=== PATIENT | male | born 1965 | race Caucasian/White ===

== ENCOUNTER 2019-11-03 22:20 | Inpatient (IN) | payer MEDICARE ==
[~2019-11-03] VITALS: Ht 170.1 cm; Wt 97.5 kg
[2019-11-03] MEDS ORDERED: ZESTRIL,PRINIVIL5 MG PO (23:30)
[2019-11-03] MEDS ORDERED: PLAVIX75 M1 PO (23:37)
[2019-11-03] MEDS ORDERED: ELIQUIS5 M1 PO (23:41)
[2019-11-03] MEDS ORDERED: OMEPRAZOLE40 MG PO (23:44)
[2019-11-03] MEDS ORDERED: GEODON80 MG PO (23:46)
[2019-11-03] MEDS ORDERED: ADDERALL XR 3030 MG PO (23:49)
[2019-11-04 18:14] VITALS: BP 103/73
[2019-11-04 18:14] LABS: BASO # 0.1 10*3/uL (0.0-0.1); BASO % 0.6 % (0.0-1.0); EOS # 0.2 10*3/uL (0.0-0.4); EOS % 1.6 % (1.0-4.0); HEMATOCRIT 42.9 % (42.0-52.0); LYMPH # 1.9 10*3/uL (1.3-4.4); LYMPH % 14.9 % (27.0-41.0); MEAN CELL VOLUME 91.5 fl (80.0-94.0); MEAN CORPUSCULAR HGB 32.2 pg (27.0-31.0); MEAN CORPUSCULAR HGB CONC 35.2 g/dl (33.0-37.0); MEAN PLATELET VOLUME 9.7 fl (9.6-12.3); MONO # 0.6 10*3/uL (0.1-1.0); MONO % 4.9 % (3.0-9.0); NEUT # 9.8 10*3/uL (2.3-7.9); NEUT % 77.6 % (47.0-73.0); PLATELET COUNT AUTOMATED 257 10*3/uL (130-400); RED BLOOD COUNT 4.69 10*6/uL (4.50-5.90); RED CELL DISTRI WIDTH 13.1 % (0-14.5); WHITE BLOOD COUNT 12.6 10*3/uL (4.8-10.8)
[2019-11-04 18:42] LABS: CHOLESTEROL 178 mg/dL (<200); HDL CHOLESTEROL 33 mg/dl (40-60); LDL CHOLESTEROL 118 mg/dL (9-159); TRIGLYCERIDES 135 mg/dl (<150); VLDL CHOLESTEROL 27 mg/dL (6-40)
[2019-11-04 18:44] LABS: ALBUMIN 3.4 gm/dl (3.1-4.5); ALKALINE PHOSPHATASE 142 U/L (45-117); BUN 13 mg/dl (7-24); CHLORIDE 103 mmol/L (98-107); CREATININE 1.44 mg/dL (0.70-1.30); POTASSIUM 3.2 mmol/L (3.5-5.1); SGOT/AST 24 IU/L (3-35); SGPT/ALT 39 U/L (12-78); SODIUM 139 mmol/L (136-145); TOTAL PROTEIN 6.8 gm/dL (6.4-8.2)
[2019-11-04 18:45] VITALS: BP 103/73
[2019-11-04 18:51] LABS: THYROID STIM HORMONE (HS) 0.822 uIU/ml (0.358-4.75)
[2019-11-04 19:18] LABS: VITAMIN D, 25-HYDROXY 9.6 ng/mL (30-100)
[2019-11-04 20:00] VITALS: BP 103/73
[2019-11-05 07:25] VITALS: BP 145/71
[2019-11-05] MEDS ORDERED: LYRICA150 M1 PO (13:33)
[2019-11-05 19:41] VITALS: BP 158/81
[2019-11-06 07:19] VITALS: BP 145/58
[2019-11-06 20:00] VITALS: BP 160/80
[2019-11-07 08:00] VITALS: BP 128/60
[2019-11-07] MEDS ORDERED: CLONAZEPAM0.5 M2 PO (08:08)
[2019-11-07] MEDS ORDERED: BRIN10TA PO (08:08)
[2019-11-07] MEDS ORDERED: CLONAZEPAM1 MG PO (08:08)
[2019-11-07] MEDS ORDERED: LYRICA150 M1 PO (16:12)
== END 2019-11-07 19:23 | disposition home or self-care (01) | DRG 885 ==
LOC: 3N 22:20
PROVIDERS: ADMIT Psychiatry & Neurology Psychiatry
DX: F31.81 Bipolar II disorder (principal); D68.69 Other thrombophilia; T14.91XA Suicide attempt, initial encounter; I48.91 Unspecified atrial fibrillation; K21.9 Gastro-esophageal reflux disease without esophagitis; F20.9 Schizophrenia, unspecified; F17.210 Nicotine dependence, cigarettes, uncomplicated; I10 Essential (primary) hypertension; Z71.6 Tobacco abuse counseling; F43.10 Post-traumatic stress disorder, unspecified; X83.8XXA Intentional self-harm by other specified means, initial encounter; Y93.89 Activity, other specified; Y92.89 Other specified places as the place of occurrence of the external cause; Y99.8 Other external cause status; Z82.49 Family history of ischemic heart disease and other diseases of the circulatory system; Z80.9 Family history of malignant neoplasm, unspecified; Z79.899 Other long term (current) drug therapy; Z79.01 Long term (current) use of anticoagulants